=== PATIENT | male | born 1985 | race American Indian/Alaskan Native ===

== ENCOUNTER 2019-10-07 11:22 | Emergency (ER) | payer SELFPAY ==
--- NOTE | 2019-10-07 12:24 | Emergency Department Report ---
Blank Doc - Documentation Documentation: 34-year-old male that presents with generalized weakness, dark colored urine, n/v, and left sided abdominal pain. This initial assessment/diagnostic orders/clinical plan/treatment(s) is/are subject to change based on patient's health status, clinical progression and re-assessment by fellow clinical providers in the ED. Further treatment and workup at subsequent clinical providers discretion. Patient/guardians urged not to elope from the ED as their condition may be serious if not clinically assessed and managed. Initial orders include: 1- Patient sent to [facility] for further evaluation and treatment 2- labs 3- UA
[2019-10-07 12:56] LABS: Hemoglobin 13.7 gm/dl (11.8-15.2)
[2019-10-07 13:03] LABS: Hematocrit 40.9 % (35.5-45.6); Mean Corpuscular HGB Conc 33 % (32-34); Mean Corpuscular Volume 93 fl (84-94); Platelet Count 417 K/mm3 (140-440); Red Blood Count 4.41 M/mm3 (3.65-5.03); Red Cell Distribution Width 14.9 % (13.2-15.2)
[2019-10-07 13:18] LABS: Alanine Aminotransferase 495 units/L (7-56); Albumin 2.9 g/dL (3.9-5); Blood Urea Nitrogen 5 mg/dL (9-20); Calcium 8.6 mg/dL (8.4-10.2); Hemolysis Index 39
[2019-10-07 13:19] LABS: BUN/Creatinine Ratio 7
[2019-10-07 13:42] LABS: Band Neutrophils # (Manual) 0.1 K/mm3; Basophils % (Manual) 0 % (0.0-1.8); Total Cells Counted 100
[2019-10-07 13:43] LABS: Platelet Estimate Consistent w Auto; Target Cells 1+
[2019-10-07] MEDS ORDERED: ONDANSETRON 4 MG/2 ML INJ IV ONE (14:36)
[2019-10-07] MEDS ORDERED: SODIUM CHLORIDE 0.9% 1000 ML 1,000 ML IV ONE (14:36)
[2019-10-07 15:36] LABS: Bilirubin,Urine NEG (Negative); Blood,Urine NEG (Negative); Color,Urine Yellow (Yellow); Protein,Urine <15 mg/dL mg/dL (Negative)
--- NOTE | 2019-10-07 15:50 | Cat Scan Report ---
CT ABDOMEN AND PELVIS WITH IV CONTRAST INDICATION: Upper abdominal pain, nausea and vomiting. COMPARISON: None available. TECHNIQUE: All CT scans at this facility use dose modulation, automated exposure control, iterative reconstructi on or weight based dosing, when appropriate, to reduce radiation dose to as low as reasonably achieva ble. FINDINGS: Lung Bases: No significant abnormality. Skeletal System: No acute abnormality. ABDOMEN: Liver: There is mild periportal edema. Hepatic parenchyma is unremarkable. Gallbladder: No significant abnormality. Bile Ducts: No significant abnormality. Pancreas: No significant abnormality. Spleen: No significant abnormality. Adrenals: No significant abnormality. Right Kidney: There is minimal nephrolithiasis at the lower pole. No hydronephrosis. Left Kidney: No significant abnormality. Upper GI tract: No significant abnormality. Lymph Nodes: No significant adenopathy. Aorta: No significant abnormality. Additional Findings: No significant abnormality. PELVIS: Colon: No acute abnormality. Mild constipation. Urinary Bladder and Distal Ureters: No significant abnormality. Appendix: No significant abnormality. Lymph Nodes: No significant adenopathy. Additional Findings: None. IMPRESSION: 1. No acute process in the abdomen or pelvis. 2. Incidental findings, as above. Signer Name: Reuben Samuel MD Signed: 10/07/2019 3:45 PM Workstation Name: [id number]
[2019-10-07 16:02] LABS: Hepatitis B Surface Antigen Non-Reactive (Negative); Hepatitis C Virus Antibody Non-Reactive (NonReactive)
--- NOTE | 2019-10-07 16:28 | Emergency Department Report ---
ED General Adult HPI - General Chief complaint: Urogenital-Male Stated complaint: V/N/COUGH/DARK URINE Time Seen by Provider: 10/07/19 12:23 Source: patient Mode of arrival: Ambulatory Limitations: No Limitations - History of Present Illness Initial comments: Patient is a 34-year-old male presents emergency room with complaints of upper abdominal pain that began 2 weeks ago. He has associated nausea and vomiting. He states he has decreased appetite. He is able to tolerate p.o. intake if he eats crackers or jessica austyn but if he tries to eat anything else he will vomit. He states that his urine is very dark in coloration. He denies any fever, d ysuria, hematochezia, melena, hematemesis, back pain. He has a past medical history of HSV. No allergies to medications. He denies any drug use. He denies any IV drug use. He endorses tobacco use. He states he drinks alcohol approximately 2 beers a week. - Related Data Previous Rx's Medication Instructions Recorded Last Taken Type Cyclobenzaprine [Flexeril 10 MG 10 mg PO QHS PRN #10 tablet 06/06/18 Unknown Rx TAB] Ibuprofen [Motrin 600 MG tab] 600 mg PO Q8H PRN #20 tablet 06/06/18 Unknown Rx Cyclobenzaprine [Flexeril] 10 mg PO Q8H #20 tablet 06/23/18 Unknown Rx Naproxen 500 mg PO Q12H PRN #20 tablet 06/23/18 Unknown Rx predniSONE [Deltasone] 60 mg PO QDAY #15 tab 06/23/18 Unknown Rx Metoclopramide [Reglan] 10 mg PO Q8HR PRN #14 tab 10/07/19 Unknown Rx Allergies Allergy/AdvReac Type Severity Reaction Status Date / Time No Known Allergies Allergy Unverified 07/18/14 07:51 ED Review of Systems ROS: Stated complaint: V/N/COUGH/DARK URINE Other details as noted in HPI Comment: All other systems reviewed and negative ED Past Medical Hx - Past Medical History Previous Medical History?: Yes Hx GERD: Yes Additional medical history: genital herpes - Surgical History Past Surgical History?: Yes Additional Surgical History: right nipple - Social History Smoking Status: Light Tobacco Smoker Substance Use Type: None - Medications Home Medications: Home Medications Medication Instructions Recorded Confirmed Last Taken Type Cyclobenzaprine [Flexeril 10 MG 10 mg PO QHS PRN #10 tablet 06/06/18 Unknown Rx TAB] Ibuprofen [Motrin 600 MG tab] 600 mg PO Q8H PRN #20 tablet 06/06/18 Unknown Rx Cyclobenzaprine [Flexeril] 10 mg PO Q8H #20 tablet 06/23/18 Unknown Rx Naproxen 500 mg PO Q12H PRN #20 tablet 06/23/18 Unknown Rx predniSONE [Deltasone] 60 mg PO QDAY #15 tab 06/23/18 Unknown Rx Metoclopramide [Reglan] 10 mg PO Q8HR PRN #14 tab 10/07/19 Unknown Rx ED Physical Exam - General Limitations: No Limitations General appearance: alert, in no apparent distress - Head Head exam: Present: atraumatic, normocephalic - Eye Eye exam: Present: normal appearance - ENT ENT exam: Present: mucous membranes moist - Respiratory Respiratory exam: Present: normal lung sounds bilaterally. Absent: respiratory distress, wheezes, rales, rhonchi, stridor, chest wall tenderness, accessory muscle use, decreased breath sounds, prolonged expiratory - Cardiovascular Cardiovascular Exam: Present: regular rate, normal rhythm, normal heart sounds. Absent: systolic murmur, diastolic murmur, rubs, gallop - GI/Abdominal GI/Abdominal exam: Present: soft, tenderness (epigastric, RUQ), normal bowel sounds. Absent: distended, guarding, rebound, rigid - Neurological Exam Neurological exam: Present: alert, oriented X3 - Psychiatric Psychiatric exam: Present: normal affect, normal mood - Skin Skin exam: Present: warm, dry, intact ED Course Vital Signs 10/07/19 10/07/19 15:00 16:47 Pulse Rate 54 L Respiratory 18 16 Rate Blood Pressure 98/59 [Left] O2 Sat by Pulse 99 100 Oximetry ED Medical Decision Making - Lab Data Result diagrams: 10/07/19 12:29 10/07/19 12:29 Lab Results 10/07/19 10/07/19 10/07/19 Range/Units 12:29 12:29 14:47 WBC 5.2 (4.5-11.0) K/mm3 RBC 4.41 (3.65-5.03) M/mm3 Hgb 13.7 (11.8-15.2) gm/dl Hct 40.9 (35.5-45.6) % MCV 93 (84-94) fl MCH 31 (28-32) pg MCHC 33 (32-34) % RDW 14.9 (13.2-15.2) % Plt Count 417 (140-440) K/mm3 Lymph % (Auto) 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 Add 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 Diff Complete Total Counted 100 Seg Neutrophils % 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 Seg Neuts % (Manual) 51.0 (40.0-70.0) % Band Neutrophils % 1.0 % Lymphocytes % (Manual) 34.0 (13.4-35.0) % Reactive Lymphs % (Man) 0 % Monocytes % (Manual) 13.0 H (0.0-7.3) % Eosinophils % (Manual) 1.0 (0.0-4.3) % Basophils % (Manual) 0 (0.0-1.8) % Metamyelocytes % 0 % Myelocytes % 0 % Promyelocytes % 0 % Blast Cells % 0 % Nucleated RBC % Not Reportable Seg Neutrophils # Man 2.7 (1.8-7.7) K/mm3 Band Neutrophils # 0.1 K/mm3 Lymphocytes # (Manual) 1.8 (1.2-5.4) K/mm3 Abs React Lymphs (Man) 0.0 K/mm3 Monocytes # (Manual) 0.7 (0.0-0.8) K/mm3 Eosinophils # (Manual) 0.1 (0.0-0.4) K/mm3 Basophils # (Manual) 0.0 (0.0-0.1) K/mm3 Metamyelocytes # 0.0 K/mm3 Myelocytes # 0.0 K/mm3 Promyelocytes # 0.0 K/mm3 Blast Cells # 0.0 K/mm3 WBC Morphology Not Reportable Hypersegmented Neuts Not Reportable Hyposegmented Neuts Not Reportable Hypogranular Neuts Not Reportable Smudge Cells Not Reportable Toxic Granulation Not Reportable Toxic Vacuolation Not Reportable Dohle Bodies Not Reportable Pelger-Huet Anomaly Not Reportable Chantal Rods Not Reportable Platelet Estimate Consistent w auto Clumped Platelets Not Reportable Plt Clumps, EDTA Not Reportable Large Platelets Not Reportable Giant Platelets Not Reportable Platelet Satelliting Not Reportable Plt Morphology Comment Not Reportable RBC Morphology Not Reportable Dimorphic RBCs Not Reportable Polychromasia Not Reportable Hypochromasia Not Reportable Poikilocytosis Not Reportable Anisocytosis Not Reportable Microcytosis Not Reportable Macrocytosis Not Reportable Spherocytes Not Reportable Pappenheimer Bodies Not Reportable Sickle Cells Not Reportable Target Cells 1+ Tear Drop Cells Not Reportable Ovalocytes Not Reportable Helmet Cells Not Reportable Alvarez-Deadwood Bodies Not Reportable [place] Rings Not Reportable Lionel Cells Not Reportable Bite Cells Not Reportable Crenated Cell Not Reportable Elliptocytes Not Reportable Acanthocytes (Spur) Not Reportable Rouleaux Not Reportable Hemoglobin C Crystals Not Reportable Schistocytes Not Reportable Malaria parasites Not Reportable Brent Bodies Not Reportable Hem Pathologist Commnt No Sodium 136 L (137-145) mmol/L Potassium 4.4 (3.6-5.0) mmol/L Chloride 102.8 (98-107) mmol/L Carbon Dioxide 23 (22-30) mmol/L Anion Gap 15 mmol/L BUN 5 L (9-20) mg/dL Creatinine 0.7 L (0.8-1.3) mg/dL Estimated GFR > 60 ml/min BUN/Creatinine Ratio 7 % Glucose 108 H (75-100) mg/dL Calcium 8.6 (8.4-10.2) mg/dL Total Bilirubin 4.00 H (0.1-1.2) mg/dL AST 169 H (5-40) units/L ALT 495 H (7-56) units/L Alkaline Phosphatase 408 H (35-129) units/L Total Creatine Kinase 105 (55-170) units/L Total Protein 6.7 (6.3-8.2) g/dL Albumin 2.9 L (3.9-5) g/dL Albumin/Globulin Ratio 0.8 % Lipase 41 (13-60) units/L Urine Color (Yellow) Urine Turbidity (Clear) Urine pH (5.0-7.0) Ur Specific [place] (1.003-1.030) Urine Protein (Negative) mg/dL Urine Glucose (UA) (Negative) mg/dL Urine Ketones (Negative) mg/dL Urine Blood (Negative) Urine Nitrite (Negative) Urine Bilirubin (Negative) Urine Urobilinogen (<2.0) mg/dL Ur Leukocyte Esterase (Negative) Urine WBC (Auto) (0.0-6.0) /HPF Urine RBC (Auto) (0.0-6.0) /HPF Hepatitis A IgM Ab Reactive A (NonReactive) Hep Bs Antigen Non-reactive (Negative) Hep B Core IgM Ab Non-reactive (NonReactive) Hepatitis C Antibody Non-reactive (NonReactive) 10/07/19 Range/Units 15:00 WBC (4.5-11.0) K/mm3 RBC (3.65-5.03) M/mm3 Hgb (11.8-15.2) gm/dl Hct (35.5-45.6) % MCV (84-94) fl MCH (28-32) pg MCHC (32-34) % RDW (13.2-15.2) % Plt Count (140-440) K/mm3 Lymph % (Auto) Add Manual Diff Total Counted Seg Neutrophils % Seg Neuts % (Manual) (40.0-70.0) % Band Neutrophils % % Lymphocytes % (Manual) (13.4-35.0) % Reactive Lymphs % (Man) % Monocytes % (Manual) (0.0-7.3) % Eosinophils % (Manual) (0.0-4.3) % Basophils % (Manual) (0.0-1.8) % Metamyelocytes % % Myelocytes % % Promyelocytes % % Blast Cells % % Nucleated RBC % Seg Neutrophils # Man (1.8-7.7) K/mm3 Band Neutrophils # K/mm3 Lymphocytes # (Manual) (1.2-5.4) K/mm3 Abs React Lymphs (Man) K/mm3 Monocytes # (Manual) (0.0-0.8) K/mm3 Eosinophils # (Manual) (0.0-0.4) K/mm3 Basophils # (Manual) (0.0-0.1) K/mm3 Metamyelocytes # K/mm3 Myelocytes # K/mm3 Promyelocytes # K/mm3 Blast Cells # K/mm3 WBC Morphology Hypersegmented Neuts Hyposegmented Neuts Hypogranular Neuts Smudge Cells Toxic Granulation Toxic Vacuolation Dohle Bodies Pelger-Huet Anomaly Chantal Rods Platelet Estimate Clumped Platelets Plt Clumps, EDTA Large Platelets Giant Platelets Platelet Satelliting Plt Morphology Comment RBC Morphology Dimorphic RBCs Polychromasia Hypochromasia Poikilocytosis Anisocytosis Microcytosis Macrocytosis Spherocytes Pappenheimer Bodies Sickle Cells Target Cells Tear Drop Cells Ovalocytes Helmet Cells Alvarez-Deadwood Bodies [place] Rings [place] Cells Bite Cells Crenated Cell Elliptocytes Acanthocytes (Spur) Rouleaux Hemoglobin C Crystals Schistocytes Malaria parasites Brent Bodies Hem Pathologist Commnt Sodium (137-145) mmol/L Potassium (3.6-5.0) mmol/L Chloride (98-107) mmol/L Carbon Dioxide (22-30) mmol/L Anion Gap mmol/L BUN (9-20) mg/dL Creatinine (0.8-1.3) mg/dL Estimated GFR ml/min BUN/Creatinine Ratio % Glucose (75-100) mg/dL Calcium (8.4-10.2) mg/dL Total Bilirubin (0.1-1.2) mg/dL AST (5-40) units/L ALT (7-56) units/L Alkaline Phosphatase (35-129) units/L Total Creatine Kinase (55-170) units/L Total Protein (6.3-8.2) g/dL Albumin (3.9-5) g/dL Albumin/Globulin Ratio % Lipase (13-60) units/L Urine Color Yellow (Yellow) Urine Turbidity Clear (Clear) Urine pH 7.0 (5.0-7.0) Ur Specific [place] 1.002 L (1.003-1.030) Urine Protein <15 mg/dl (Negative) mg/dL Urine Glucose (UA) Neg (Negative) mg/dL Urine Ketones Neg (Negative) mg/dL Urine Blood Neg (Negative) Urine Nitrite Neg (Negative) Urine Bilirubin Neg (Negative) Urine Urobilinogen 2.0 (<2.0) mg/dL Ur Leukocyte Esterase Neg (Negative) Urine WBC (Auto) 1.0 (0.0-6.0) /HPF Urine RBC (Auto) 2.0 (0.0-6.0) /HPF Hepatitis A IgM Ab (NonReactive) Hep Bs Antigen (Negative) Hep B Core IgM Ab (NonReactive) Hepatitis C Antibody (NonReactive) Vital Signs 10/07/19 10/07/19 15:00 16:47 Pulse Rate 54 L Respiratory 18 16 Rate Blood Pressure 98/59 [Left] O2 Sat by Pulse 99 100 Oximetry - Radiology Data Radiology results: report reviewed CT ABDOMEN AND PELVIS WITH IV CONTRAST INDICATION: Upper abdominal pain, nausea and vomiting. COMPARISON: None available. TECHNIQUE: All CT scans at this facility use dose modulation, automated exposure control, iterative reconstruction or weight based dosing, when appropriate, to reduce radiation dose to as low as reasonably achievable. FINDINGS: Lung Bases: No significant abnormality. Skeletal System: No acute abnormality. ABDOMEN: Liver: There is mild periportal edema. Hepatic parenchyma is unremarkable. Gallbladder: No significant abnormality. Bile Ducts: No significant abnormality. Pancreas: No significant abnormality. Spleen: No significant abnormality. Adrenals: No significant abnormality. Right Kidney: There is minimal nephrolithiasis at the lower pole. No hydronephrosis. Left Kidney: No significant abnormality. Upper GI tract: No significant abnormality. Lymph Nodes: No significant adenopathy. Aorta: No significant abnormality. Additional Findings: No significant abnormality. PELVIS: Colon: No acute abnormality. Mild constipation. Urinary Bladder and Distal Ureters: No significant abnormality. Appendix: No significant abnormality. Lymph Nodes: No significant adenopathy. Additional Findings: None. IMPRESSION: 1. No acute process in the abdomen or pelvis. 2. Incidental findings, as above. Signer Name: Reuben Samuel MD Signed: 10/07/2019 3:45 PM Workstation Name: [id number] Transcribed By: SW Dictated By: Reuben Samuel MD Electronically Authenticated By: Reuben Samuel MD Signed Date/Time: 10/07/191544 DD/ 39 TD/TT: - Medical Decision Making Patient is a 34-year-old male presents emergency room with complaints of upper abdominal pain that began 2 weeks ago. He has associated nausea and vomiting. He states he has decreased appetite. He is able to tolerate p.o. intake if he eats crackers or jessica austyn but if he tries to eat anything else he will vomit. He states that his urine is very dark in coloration. He denies any fever, dysuria, hematochezia, melena, hematemesis, back pain. He has a past medical history of HSV. No allergies to medications. He denies any drug use. He denies any IV drug use. He endorses tobacco use. He states he drinks alcohol approximately 2 beers a week. Vitals are stable. On exam patient has epigas tric and right upper quadrant tenderness palpation, no guarding, no rebound, no rigidity, normal bowel sounds, no peritoneal signs, negative Ziegler sign. White blood cell count is normal. Labs significant for elevated LFTs. CT abdomen pelvis with IV contrast to rule out intra-abdominal pathology and shows 1. No acute process in the abdomen or pelvis. 2. Incidental findings, as above. Acute hepatitis panel ordered and patient is positive for hepatitis A IgM. Discussed case with Dr. Jennings, ER attending who states that this is self-limiting and that patient is feeling better and able to tolerate p.o. intake he can be discharged home to follow-up with GI. Patient given 1 L IV fluids and Zofran and symptoms completely improved, he has no pain currently, he has had no episodes of vomiting while in the ED, he is able to tolerate p.o. intake without difficulty. Discussed all results with patient and answered questions. Patient given prescription for reglan. Advised patient Please take medication as prescribed as needed. Increase your water intake over the next several days. Eat a bland liquid diet. Please avoid any alcohol or NSAIDs or drugs or any items that may be toxic to your liver. Follow-up with a GI doctor. follow up with a primary care doctor. Return to emergency room immediately for any new or worsening symptoms. - Differential Diagnosis Hepatitis, pancreatitis, cholecystitis, cholelithiasis, choledocholithiasis Critical care attestation.: If time is entered above; I have spent that time in minutes in the direct care of this critically ill patient, excluding procedure time. ED Disposition Clinical Impression: Elevated LFTs Abdominal pain Qualifiers: Abdominal location: upper abdomen, unspecified Qualified Code(s): R10.10 - Upper abdominal pain, unspecified Nausea & vomiting Qualifiers: Vomiting type: unspecified Vomiting Intractability: non-intractable Qualified Code(s): R11.2 - Nausea with vomiting, unspecified Hepatitis A Qualifiers: Hepatic coma status: without hepatic coma Qualified Code(s): B15.9 - Hepatitis A without hepatic coma Disposition: DC-01 TO HOME OR SELFCARE Is pt being admited?: No Does the pt Need Aspirin: No Condition: Stable Instructions: Viral Hepatitis A (ED) Additional Instructions: Please take medication as prescribed as needed. Increase your water intake over the next several days. Eat a bland liquid diet. Please avoid any alcohol or NSAIDs or drugs or any items that may be toxic to your liver. Follow-up with a GI doctor. follow up with a primary care doctor. Return to emergency room immediately for any new or worsening symptoms. Prescriptions: Metoclopramide [Reglan] 10 mg PO Q8HR PRN #14 tab PRN Reason: Nausea And Vomiting Referrals: PRIMARY CARE, [Primary Care Provider] - 2-3 Days [facility] [Provider Group] - 2-3 Days Forms: Work/School Release Form(ED) Time of Disposition: 17:33 Print Language: SAMOAN
[2019-10-07 16:48] VITALS: BP 98/59
== END 2019-10-07 17:43 | disposition home or self-care (01) ==
LOC: ED 11:22
DX: B15.9 Hepatitis A without hepatic coma (principal); R94.5 Abnormal results of liver function studies
CPT/HCPCS: 36415; 74177; 80053; 80074; 81001; 82550; 83690; 85007; 85025; 96361; 96374; 99284; J2405; J7030; Q9967

== ENCOUNTER 2020-01-02 19:03 | Emergency (ER) | payer SELFPAY ==
--- NOTE | 2020-01-02 19:47 | Event Note ---
ED Screening Note Date of service: 01/02/20 Time: 19:46 ED Screening Note: Patient complains of headaches x1 week, burn to the left hand after touching a stop, and possible fracture to the left hand after punching a window He reports his last tetanus vaccine was within the last 5 years. This initial assessment/diagnostic orders/clinical plan/treatment(s) is/are subject to change based on patients health status, clinical progression and re- assessment by fellow clinical providers in the ED. Further treatment and workup at subsequent clinical providers discretion. Patient/guardian urged not to elope from the ED as their condition may be serious if not clinically assessed and managed. Initial orders include: Labs X-ray
[2020-01-02 19:48] VITALS: BP 127/83
[2020-01-02 20:21] LABS: Basophils % (Auto) 0.9 % (0.0-1.8); Eosinophils # (Auto) 0.1 K/mm3 (0.0-0.4); Eosinophils % (Auto) 2.1 % (0.0-4.3); Hematocrit 44.4 % (35.5-45.6); Lymphocytes # (Auto) 2.2 K/mm3 (1.2-5.4); Lymphocytes % (Auto) 39.4 % (13.4-35.0); Mean Corpuscular HGB Conc 34 % (32-34); Mean Corpuscular Volume 94 fl (84-94); Monocytes # (Auto) 0.5 K/mm3 (0.0-0.8); Monocytes % (Auto) 9.1 % (0.0-7.3); Platelet Count 218 K/mm3 (140-440); Red Blood Count 4.75 M/mm3 (3.65-5.03); Red Cell Distribution Width 14.1 % (13.2-15.2)
[2020-01-02 20:32] LABS: Alanine Aminotransferase 39 units/L (7-56); Albumin 4.4 g/dL (3.9-5); BUN/Creatinine Ratio 16; Blood Urea Nitrogen 16 mg/dL (9-20); Calcium 9.5 mg/dL (8.4-10.2); Hemolysis Index 18
--- NOTE | 2020-01-02 20:41 | XRay Report ---
LEFT HAND 3 VIEWS INDICATION / CLINICAL INFORMATION: left hand pain after punching window COMPARISON: None available. FINDINGS: BONES / JOINT(S): Fifth metacarpal neck fracture with anterior angulation of the distal fragment and mild impaction. No additional bony injury. SOFT TISSUES: Soft tissue swelling overlying the fracture site. ADDITIONAL FINDINGS: None. Signer Name: Asad Krause MD Signed: 01/02/2020 8:41 PM Workstation Name: [id number]
[2020-01-02] MEDS ORDERED: IBUPROFEN 600 MG TAB PO ONE (21:56)
--- NOTE | 2020-01-02 22:20 | Emergency Department Report ---
Upper Extremity - HPI Chief Complaint: Extremity Injury, Lower Stated Complaint: HAND INJURY AND KNOT ON THE BACK OF HEAD Time Seen by Provider: 01/02/20 19:45 Upper Extremity: Left Hand Occurred When: 1 Day Mechanism: Hit with Object Severity: moderate Symptoms: Yes Pain with Movement, Yes Swelling, Yes Bruising/Ecchymosis Other History: The patient was evaluated in the emergency department for symptoms described in the history of present illness. He/she was evaluated in the context of the global COVID-19 pandemic, which necessitated consideration that the patient might be at risk for infection with the virus that causes COVID-19. Institutional protocols and algorithms that pertain to the evaluation of patients at risk for COVID-19 are in a state of rapid change based on information released by regulatory bodies including the CDC and federal and state organizations. These policies and algorithms were followed during the patient's care in the emergency department. Please note that these policies, procedures and recommendations changed on a rapid basis. 34-year-old - Citizen Of [place] male presents to the emergency room for left hand pain after punching a window yesterday. Also comes in complaining of a burn to the left hand x2 days on a hot spoon. Patient states he has a lump to the back of his head he thinks is been there a week. Patient has not taken any pain for his symptoms. ED Review of Systems ROS: Stated complaint: HAND INJURY AND KNOT ON THE BACK OF HEAD Other details as noted in HPI Comment: All other systems reviewed and negative ED Past Medical Hx - Past Medical History Hx GERD: Yes Additional medical history: genital herpes - Surgical History Additional Surgical History: right nipple - Social History Smoking Status: Current Every Day Smoker Substance Use Type: Alcohol - Medications Home Medications: Home Medications Medication Instructions Recorded Confirmed Last Taken Type Cyclobenzaprine [Flexeril 10 MG 10 mg PO QHS PRN #10 tablet 06/06/18 Unknown Rx TAB] Cyclobenzaprine [Flexeril] 10 mg PO Q8H #20 tablet 06/23/18 Unknown Rx Naproxen 500 mg PO Q12H PRN #20 tablet 06/23/18 Unknown Rx predniSONE [Deltasone] 60 mg PO QDAY #15 tab 06/23/18 Unknown Rx Metoclopramide [Reglan] 10 mg PO Q8HR PRN #14 tab 10/07/19 Unknown Rx Ibuprofen [Motrin 600 MG tab] 600 mg PO Q8H PRN #20 tablet 01/02/20 Unknown Rx cephALEXin [Keflex] 500 mg PO Q12HR 7 Days #14 cap 01/02/20 Unknown Rx traMADoL [Ultram 50 MG tab] 50 mg PO Q6HR PRN #12 tablet 01/02/20 Unknown Rx Upper Extremity Exam - Exam General: Vital signs noted. No distress. Alert and acting appropriately. Head and Torso: No HEENT Abnormality, No Neck Tenderness, No Chest/Lungs Abnormality, No Abdominal Tenderness, No Back Tenderness Shoulder Exam: Yes Normal Range of Motion in Shoulder Arm Exam: Yes Arm/Humerus Tenderness Elbow: Yes Normal Range of Motion in Elbow Hand: Yes Hand Tenderness, Yes Hand Deformity, No Digit(s) Deformity CMS Exam: Yes Normal Distal Pulses, Yes Normal Capillary Refill, Yes Normal Distal Sensation, No Broken Skin (2 blisters on the palm of left hand is intact.) ED Course Vital Signs 01/02/20 19:45 Temperature 97.9 F Pulse Rate 101 H Respiratory 18 Rate Blood Pressure 127/83 O2 Sat by Pulse 98 Oximetry ED Medical Decision Making - Lab Data Result diagrams: 01/02/20 20:01 01/02/20 20:01 - Radiology Data Radiology results: report reviewed Referring Physician:MARIA D HERNANDEZPatient Name:JELENA VELEZPatient ID:[id number] of :[id number]:MaleAccession:[id number] Date:[id number] Status:Finalized Findings [address] [address] XRay Report Signed Patient: JELENA VELEZ MR#: [id number] : 1985 Acct:[id number] Age/Sex: 34 / M ADM Date: 01/02/20 Loc: ED Attending Dr: Ordering Physician: MARIA D HERNANDEZ Date of Service: 01/02/20 Procedure(s): XR hand 3+V LT Accession Number(s): [id number] cc: MARIA D HERNANDEZ Fluoro Time In Minutes: LEFT HAND 3 VIEWS INDICATION / CLINICAL INFORMATION: left hand pain after punching window COMPARISON: None available. FINDINGS: BONES / JOINT(S): Fifth metacarpal neck fracture with anterior angulation of the distal fragment and mild impaction. No additional bony injury. SOFT TISSUES: Soft tissue swelling overlying the fracture site. ADDITIONAL FINDINGS: None. Signer Name: Asad Krause MD Signed: 01/02/2020 8:41 PM Workstation Name: [id number] Transcribed By: ES Dictated By: Asad Krause MD Electronically Authenticated By: Asad Krause MD Signed Date/Time: 01/02/202040 - Medical Decision Making 34-year-old -Citizen Of [place] male presents to the emergency room for left hand pain after punching a window yesterday. Also comes in complaining of a burn to the left hand x2 days on a hot spoon. Patient states he has a lump to the back of his head he thinks is been there a week. Patient has not taken any pain for his symptoms X-ray shows a left fifth meta carpal fracture with angulation. Lesser on his vizcaino nd can follow-up but [place] [facility]. I recommend keep intact skin for protection of infection. Patient will be placed on Keflex. Patient is to follow-up with a primary care provider for the lump on his head is not concerned. Critical care attestation.: If time is entered above; I have spent that time in minutes in the direct care of this critically ill patient, excluding procedure time. ED Disposition Clinical Impression: Displaced fracture of neck of left fifth metacarpal bone, Blister of hand without infection Disposition: DC-01 TO HOME OR SELFCARE Is pt being admited?: No Does the pt Need Aspirin: No Condition: Stable Instructions: Metacarpal Fracture, Tigu-[id number]-Ywru Additional Instructions: Complete antibiotics as prescribed. Take pain medication as needed. Follow-up with the burn specialist at [place]. Follow-up with an orthopedic provider I have listed their information below for your convenience. Also follow-up with a primary care provider. Prescriptions: cephALEXin [Keflex] 500 mg PO Q12HR 7 Days #14 cap Ibuprofen [Motrin 600 MG tab] 600 mg PO Q8H PRN #20 tablet PRN Reason: Pain traMADoL [Ultram 50 MG tab] 50 mg PO Q6HR PRN #12 tablet PRN Reason: Pain Referrals: ERNESTINE CHRISTY MD [Primary Care Provider] - 3-5 Days HANNAH ORELLANA MD [Staff Physician] - 3-5 Days [facility] [Provider Group] - 3-5 Days [facility] [Outside] - 3-5 Days Forms: Work/School Release Form(ED)
== END 2020-01-02 22:40 | disposition home or self-care (01) ==
LOC: ED 19:03
DX: S62.337A Displaced fracture of neck of fifth metacarpal bone, left hand, initial encounter for closed fracture (principal); S60.529A Blister (nonthermal) of unspecified hand, initial encounter; K21.9 Gastro-esophageal reflux disease without esophagitis; F17.200 Nicotine dependence, unspecified, uncomplicated; Z79.899 Other long term (current) drug therapy; Z98.890 Other specified postprocedural states; X58.XXXA Exposure to other specified factors, initial encounter; Y93.89 Activity, other specified; Y92.89 Other specified places as the place of occurrence of the external cause; Y99.8 Other external cause status
CPT/HCPCS: 36415; 80053; 85025

== ENCOUNTER 2020-01-27 06:05 | Emergency (ER) | payer SELFPAY ==
[2020-01-27] MEDS ORDERED: ONDANSETRON 4 MG ODT TAB PO ONE (11:03)
[2020-01-27 11:40] LABS: Basophils # (Auto) 0.1 K/mm3 (0.0-0.1); Basophils % (Auto) 0.9 % (0.0-1.8); Eosinophils % (Auto) 0.3 % (0.0-4.3); Hematocrit 44.3 % (35.5-45.6); Hemoglobin 14.9 gm/dl (11.8-15.2); Lymphocytes # (Auto) 0.8 K/mm3 (1.2-5.4); Lymphocytes % (Auto) 13.4 % (13.4-35.0); Mean Corpuscular HGB Conc 34 % (32-34); Mean Corpuscular Volume 93 fl (84-94); Monocytes # (Auto) 0.7 K/mm3 (0.0-0.8); Monocytes % (Auto) 10.8 % (0.0-7.3); Platelet Count 196 K/mm3 (140-440); Red Blood Count 4.75 M/mm3 (3.65-5.03); Red Cell Distribution Width 13.7 % (13.2-15.2)
[2020-01-27 11:56] LABS: Alanine Aminotransferase 24 units/L (7-56); Albumin 4.4 g/dL (3.9-5); BUN/Creatinine Ratio 8; Bilirubin,Direct 0.2 mg/dL (0-0.2); Blood Urea Nitrogen 8 mg/dL (9-20); Calcium 9.2 mg/dL (8.4-10.2); Hemolysis Index 19
--- NOTE | 2020-01-27 13:17 | Emergency Department Report ---
ED General Adult HPI - General Chief complaint: Urogenital-Male Stated complaint: RECTAL BLEEDING/HERPES Source: patient Mode of arrival: Ambulatory Limitations: No Limitations - History of Present Illness Initial comments: Is a 34-year-old man who essentially is here to obtain medication as prophylaxis for herpes outbreaks. He states he was here sometime ago for the same. Inmarilee krause he stated that he was having an outbreak now on his penis. However on exam there was nothing found and he admitted that he had no current problem. Patient's initial blood pressure was elevated. He is not taking any medication for hypertension. He does not take any other medication. He has no other specific complaint. Apparently the patient did have a hepatitis A infection. He never had any follow-up for that. He does have 2 bilirubins which showed a significant downward trend prior. He states that he has never had HIV testing. -: month(s) Location: genitals Improves with: none Worsens with: none Associated Symptoms: denies other symptoms - Related Data Previous Rx's Medication Instructions Recorded Last Taken Type Cyclobenzaprine [Flexeril 10 MG 10 mg PO QHS PRN #10 tablet 06/06/18 Unknown Rx TAB] Cyclobenzaprine [Flexeril] 10 mg PO Q8H #20 tablet 06/23/18 Unknown Rx Naproxen 500 mg PO Q12H PRN #20 tablet 06/23/18 Unknown Rx predniSONE [Deltasone] 60 mg PO QDAY #15 tab 06/23/18 Unknown Rx Metoclopramide [Reglan] 10 mg PO Q8HR PRN #14 tab 10/07/19 Unknown Rx Ibuprofen [Motrin 600 MG tab] 600 mg PO Q8H PRN #20 tablet 01/02/20 Unknown Rx cephALEXin [Keflex] 500 mg PO Q12HR 7 Days #14 cap 01/02/20 Unknown Rx traMADoL [Ultram 50 MG tab] 50 mg PO Q6HR PRN #12 tablet 01/02/20 Unknown Rx amLODIPine 5 mg PO DAILY #30 tab 01/27/20 Unknown Rx valACYclovir [Valtrex] 500 mg PO QID #30 tab 01/27/20 Unknown Rx Allergies Allergy/AdvReac Type Severity Reaction Status Date / Time No Known Allergies Allergy Unverified 07/18/14 07:51 ED Review of Systems ROS: Stated complaint: RECTAL BLEEDING/HERPES Other details as noted in HPI Constitutional: denies: chills, fever Eyes: denies: eye pain, vision change ENT: denies: ear pain, throat pain Respiratory: denies: cough, shortness of breath Cardiovascular: denies: chest pain, palpitations Endocrine: no symptoms reported Gastrointestinal: denies: abdominal pain, nausea, diarrhea Genitourinary: as per HPI. denies: urgency, dysuria Musculoskeletal: denies: back pain, joint swelling, arthralgia Skin: denies: rash, lesions Neurological: denies: headache, weakness, paresthesias Psychiatric: denies: anxiety, depression Hematological/Lymphatic: denies: easy bleeding, easy bruising ED Past Medical Hx - Past Medical History Previous Medical History?: Yes Hx GERD: Yes Additional medical history: genital herpes, Hepatitis A - Surgical History Past Surgical History?: Yes Additional Surgical History: right nipple - Social History Smoking Status: Current Every Day Smoker Substance Use Type: Alcohol - Medications Home Medications: Home Medications Medication Instructions Recorded Confirmed Last Taken Type Cyclobenzaprine [Flexeril 10 MG 10 mg PO QHS PRN #10 tablet 06/06/18 Unknown Rx TAB] Cyclobenzaprine [Flexeril] 10 mg PO Q8H #20 tablet 06/23/18 Unknown Rx Naproxen 500 mg PO Q12H PRN #20 tablet 06/23/18 Unknown Rx predniSONE [Deltasone] 60 mg PO QDAY #15 tab 06/23/18 Unknown Rx Metoclopramide [Reglan] 10 mg PO Q8HR PRN #14 tab 10/07/19 Unknown Rx Ibuprofen [Motrin 600 MG tab] 600 mg PO Q8H PRN #20 tablet 01/02/20 Unknown Rx cephALEXin [Keflex] 500 mg PO Q12HR 7 Days #14 cap 01/02/20 Unknown Rx traMADoL [Ultram 50 MG tab] 50 mg PO Q6HR PRN #12 tablet 01/02/20 Unknown Rx amLODIPine 5 mg PO DAILY #30 tab 01/27/20 Unknown Rx valACYclovir [Valtrex] 500 mg PO QID #30 tab 01/27/20 Unknown Rx ED Physical Exam - General Limitations: No Limitations General appearance: alert, in no apparent distress - Head Head exam: Present: atraumatic, normocephalic - Eye Eye exam: Present: normal appearance. Absent: scleral icterus - ENT ENT exam: Present: mucous membranes moist - Neck Neck exam: Present: normal inspection - Respiratory Respiratory exam: Present: normal lung sounds bilaterally. Absent: respiratory distress - Cardiovascular Cardiovascular Exam: Present: regular rate, normal rhythm. Absent: systolic murmur, diastolic murmur, rubs, gallop - GI/Abdominal GI/Abdominal exam: Present: soft, normal bowel sounds. Absent: distended, tenderness, guarding, rebound - Rectal Rectal exam: Present: deferred - exam: Present: normal inspection - Extremities Exam Extremities exam: Present: normal inspection - Back Exam Back exam: Present: normal inspection - Neurological Exam Neurological exam: Present: alert, oriented X3, CN II-XII intact. Absent: motor sensory deficit - Psychiatric Psychiatric exam: Present: normal affect, normal mood - Skin Skin exam: Present: warm, dry, intact, normal color. Absent: rash ED Course Vital Signs 01/27/20 07:27 Temperature 98.7 F Pulse Rate 109 H Respiratory 20 Rate Blood Pressure 164/93 O2 Sat by Pulse 95 Oximetry ED Medical Decision Making - Lab Data Result diagrams: 01/27/20 11:11 01/27/20 11:11 Critical care attestation.: If time is entered above; I have spent that time in minutes in the direct care of this critically ill patient, excluding procedure time. ED Disposition Clinical Impression: Essential hypertension, History of herpes genitalis Disposition: DC-01 TO HOME OR SELFCARE Is pt being admited?: No Does the pt Need Aspirin: No Condition: Stable Instructions: Hypertension (ED), Hypertension, Adult, Kmtl-[id number], Genital Herpes Additional Instructions: Rx as needed for herpes outbreaks. Follow-up at the health department or [facility]. You were found to have hypertension. Rx as directed. Prescriptions: amLODIPine 5 mg PO DAILY #30 tab valACYclovir [Valtrex] 500 mg PO QID #30 tab Referrals: PRIMARY CARE, [Primary Care Provider] - 3-5 Days [facility] [Outside] - 3-5 Days [facility] [Provider Group] - 3-5 Days Time of Disposition: 13:17
[2020-01-27 13:20] VITALS: BP 156/88
== END 2020-01-27 13:29 | disposition home or self-care (01) ==
LOC: ED 06:05
DX: I10 Essential (primary) hypertension (principal); K21.9 Gastro-esophageal reflux disease without esophagitis; F17.200 Nicotine dependence, unspecified, uncomplicated; Z79.899 Other long term (current) drug therapy; Z98.890 Other specified postprocedural states; Z86.19 Personal history of other infectious and parasitic diseases
CPT/HCPCS: 36415; 80048; 80076; 83735; 85025; Q0162

== ENCOUNTER 2020-01-29 11:57 | Emergency (ER) | payer SELFPAY ==
[2020-01-29 13:28] VITALS: BP 112/74
== END 2020-01-29 18:00 | disposition left against medical advice (07) ==
LOC: ED 11:57
DX: R52 Pain, unspecified (principal); Z53.21 Procedure and treatment not carried out due to patient leaving prior to being seen by health care provider

== ENCOUNTER 2021-03-25 02:02 | Emergency (ER) | payer SELFPAY ==
[2021-03-25] MEDS ORDERED: diphenhydrAMINE 25 MG CAP PO ONE (02:57)
[2021-03-25] MEDS ORDERED: FAMOTIDINE 20 MG TAB PO ONE (07:32)
[2021-03-25] MEDS ORDERED: predniSONE 20 MG TAB PO ONE (07:32)
[2021-03-25] MEDS ORDERED: FAMOTIDINE 20 MG/2 ML INJ IV ONE (07:34)
[2021-03-25] MEDS ORDERED: dexAMETHasone 20 MG/5 ML VIAL IV ONE (07:34)
--- NOTE | 2021-03-25 07:35 | Emergency Department Report ---
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 PURUITIC. NO SECONDARY INFECTION NOTED. ED Past Medical Hx - Past Medical History Previous Medical History?: Yes Hx GERD: Yes Additional medical history: genital herpes, Hepatitis A - Surgical History Past Surgical History?: Yes Additional Surgical History: right nipple - Family History Family history: no significant - Social History Smoking Status: Current Every Day Smoker Substance Use Type: Alcohol - Medications Home Medications: Home Medications Medication Instructions Recorded Confirmed Last Taken Type amLODIPine 5 mg PO DAILY #30 tab 01/27/20 Unknown Rx valACYclovir [Valtrex] 500 mg PO QID #30 tab 01/27/20 Unknown Rx Cetirizine HCl [ZyrTEC] 10 mg PO DAILY #30 capsule 03/25/21 Unknown Rx hydrOXYzine PAMOATE [Vistaril] 25 mg PO Q6HR PRN #20 capsule 03/25/21 Unknown Rx predniSONE [Deltasone] 20 mg PO DAILY #5 tablet 03/25/21 Unknown Rx ED Review of Systems ROS: Stated complaint: ALLERGIC REACTION Other details as noted in HPI Comment: All other systems reviewed and negative Constitutional: denies: chills, fever Eyes: denies: eye pain, eye discharge, vision change ENT: denies: ear pain, throat pain Respiratory: denies: cough, shortness of breath, wheezing Cardiovascular: denies: chest pain, palpitations Endocrine: no symptoms reported Gastrointestinal: denies: abdominal pain, nausea, diarrhea Genitourinary: denies: urgency, dysuria Musculoskeletal: denies: back pain, joint swelling, arthralgia Skin: denies: rash, lesions Neurological: denies: headache, weakness, paresthesias Psychiatric: denies: anxiety, depression Hematological/Lymphatic: denies: easy bleeding, easy bruising Physical Exam - Physical Exam Vital Signs: Vital Signs 03/25/21 02:05 Temperature 98.6 F Pulse Rate 95 H Respiratory 18 Rate Blood Pressure 132/89 [Right] O2 Sat by Pulse 96 Oximetry General: ALERT ORIENTED S1S2 LUNGS CTA ABD SNT NO CVA TENDERNESS GENERALIZED URTICARIAL RASH ? TRIGGER ED Course Vital Signs 03/25/21 02:05 Temperature 98.6 F Pulse Rate 95 H Respiratory 18 Rate Blood Pressure 132/89 [Right] O2 Sat by Pulse 96 Oximetry ED Medical Decision Making - Medical Decision Making Vital Signs 03/25/21 02:05 Temperature 98.6 F Pulse Rate 95 H Respiratory 18 Rate Blood Pressure 132/89 [Right] O2 Sat by Pulse 96 Oximetry GENERALIZED RASH. STARTED ON TRUNK NO KNOWN TRIGGER NO KNOWN IRRITANT NO ONE IN HOME WITH THE SAME PURITIC IN [place] PT DENIES SIMILAR HX DENIES DRUGS- HE IS VERY AGITATED FROM THE ITCHING PT HAS HX HEP A HERE 02/03 AND LFT NORMAL NO CRYSTALS ON SKIN NO JAUNDICE NO ORAL OR HAND LESIONS DENIES FEVER CHILLS DENIES ABD OR BACK PAIN DENIES N/V/D AMBULATORY WITH NO SOB OR CP MEDICATED WITH BENADRYL OVERNIGHT WITH SOME RELIEF. I THEN MEDICATED HIM WITH PEPCID AND STEROID- AND THAT SEEM TO MAKE A LARGE DIFFERENCE. REDNESS DECREASED. ITCHING . AND PT THEN ASKING TO BE D/C DC HOME WITH DC PLAN OF CARE INCLUDING DIET, ACTIVITY, MEDS, FOLLOW UP. I'VE TOLD HIM HE MAY NEED OTHER TESTS TO DEFINITIVELY DEFINE WHAT IS CAUSING RASH. HE VERBALIZES UNDERSTANDING - Differential Diagnosis HIVES/RASH/INSECT RELATED Critical care attestation.: If time is entered above; I have spent that time in minutes in the direct care of this critically ill patient, excluding procedure time. ED Disposition Clinical Impression: Rash Disposition: 01 HOME / SELF CARE / HOMELESS Is pt being admited?: No Does the pt Need Aspirin: No Condition: Stable Instructions: Hives, Rash, Adult Additional Instructions: MEDS ORDERED TODAY FOLLOW UP WITH PCP IF IT DOES NOT GET BETTER YOU MAY NEED TESTS TO DETERMINE WHAT CAUSED THIS ER'S DO NOT DO SKIN TESTING Prescriptions: predniSONE [Deltasone] 20 mg PO DAILY #5 tablet hydrOXYzine PAMOATE [Vistaril] 25 mg PO Q6HR PRN #20 capsule PRN Reason: Itching Cetirizine HCl [ZyrTEC] 10 mg PO DAILY #30 capsule Referrals: PRIMARY CARE, [Primary Care Provider] - 3-5 Days SUSANNE PEREZ MD [Staff Physician] - 3-5 Days Time of Disposition: 09:26
[2021-03-25] MEDS ORDERED: IBUPROFEN 800 MG TAB PO ONE (09:25)
[2021-03-25 09:50] VITALS: BP 117/84
== END 2021-03-25 09:43 | disposition home or self-care (01) ==
LOC: ED 02:02
DX: R21 Rash and other nonspecific skin eruption (principal)
CPT/HCPCS: 99283; J1100; J3490

== ENCOUNTER 2021-09-30 17:27 | Emergency (ER) | payer SELFPAY ==
[2021-09-30 20:17] VITALS: BP 135/95
--- NOTE | 2021-09-30 23:21 | Emergency Department Report ---
ED General Adult HPI - General Chief complaint: Headache Stated complaint: I just want to make sure I am okay Time Seen by Provider: 09/30/21 22:38 Source: patient, RN notes reviewed, old records reviewed Mode of arrival: Ambulatory Limitations: No Limitations - History of Present Illness Initial comments: The patient was evaluated in the emergency department for symptoms described in the history of present illness. He/she was evaluated in the context of the global COVID-19 pandemic, which necessitated consideration that the patient might be at risk for infection with the virus that causes COVID-19. Institutional protocols and algorithms that pertain to the evaluation of patients at risk for COVID-19 are in a state of rapid change based on inf ormation released by regulatory bodies including the CDC and federal and state organizations. These policies and algorithms were followed during the patient's care in the emergency department. Please note that these policies, procedures and recommendations changed on a rapid basis. The patient is a 36-year-old gentleman, who presents to the department today with a complaint of request for reassurance. He reports that a family member recently a few weeks ago secondary to fibroids. This upset the patient a great deal. A few weeks ago, he felt like he had intermittent forehead swelling and pulsing on the right side. Then, he felt like he had this on the left side. It is now resolved. At the moment, the patient denies all physical complaints. The patient states he does not need pain medication. The patient states that he feels like he is at his baseline. He indicates that he would like to be checked out to make sure that everything is okay -: week(s) Location: head Consistency: now resolved Improves with: none Worsens with: none Associated Symptoms: denies other symptoms - Related Data Previous Rx's Medication Instructions Recorded Last Taken Type amLODIPine 5 mg PO DAILY #30 tab 01/27/20 Unknown Rx valACYclovir [Valtrex] 500 mg PO QID #30 tab 01/27/20 Unknown Rx Cetirizine HCl [ZyrTEC] 10 mg PO DAILY #30 capsule 03/25/21 Unknown Rx hydrOXYzine PAMOATE [Vistaril] 25 mg PO Q6HR PRN #20 capsule 03/25/21 Unknown Rx predniSONE [Deltasone] 20 mg PO DAILY #5 tablet 03/25/21 Unknown Rx Allergies Allergy/AdvReac Type Severity Reaction Status Date / Time No Known Allergies Allergy Unverified 07/18/14 07:51 ED Review of Systems ROS: Stated complaint: HEAD Other details as noted in HPI Comment: All other systems reviewed and negative Neurological: headache ED Past Medical Hx - Past Medical History Hx GERD: Yes Additional medical history: genital herpes, Hepatitis A - Surgical History Additional Surgical History: right nipple - Social History Smoking Status: Current Every Day Smoker Substance Use Type: Alcohol - Medications Home Medications: Home Medications Medication Instructions Recorded Confirmed Last Taken Type amLODIPine 5 mg PO DAILY #30 tab 01/27/20 Unknown Rx valACYclovir [Valtrex] 500 mg PO QID #30 tab 01/27/20 Unknown Rx Cetirizine HCl [ZyrTEC] 10 mg PO DAILY #30 capsule 03/25/21 Unknown Rx hydrOXYzine PAMOATE [Vistaril] 25 mg PO Q6HR PRN #20 capsule 03/25/21 Unknown Rx predniSONE [Deltasone] 20 mg PO DAILY #5 tablet 03/25/21 Unknown Rx ED Physical Exam - General Limitations: No Limitations General appearance: alert, in no apparent distress - Head Head exam: Present: atraumatic, normocephalic - Eye Eye exam: Present: normal appearance, EOMI. Absent: nystagmus - ENT ENT exam: Present: normal exam, normal orophraynx, mucous membranes moist, normal external ear exam - Neck Neck exam: Present: normal inspection, full ROM. Absent: tenderness, meningismus - Respiratory Respiratory exam: Absent: respiratory distress, stridor - Cardiovascular Cardiovascular Exam: Absent: JVD - GI/Abdominal GI/Abdominal exam: Present: soft. Absent: distended, tenderness, guarding, rebound, rigid, pulsatile mass - Rectal Rectal exam: Present: deferred - Extremities Exam Extremities exam: Present: normal inspection, full ROM, normal capillary refill, other (2+ pulses noted in the bilateral upper and lower extremities. There is no palpable cord. negative Homans sign. Muscular compartments are soft. The pelvis is stable.). Absent: pedal edema, calf tenderness - Back Exam Back exam: Present: normal inspection. Absent: tenderness, CVA tenderness (R), CVA tenderness (L), paraspinal tenderness, vertebral tenderness - Neurological Exam Neurological exam: Present: alert, oriented X3, normal gait, other (No facial droop. Tongue midline. Extraocular movements intact bilaterally. Facial sensation intact to light touch in V1, V2, V3 distribution bilaterally. 5 and a 5 strength in 4 extremities. Sensation intact to light touch in 4 extremities.). Absent: motor sensory deficit - Psychiatric Psychiatric exam: Present: normal affect, normal mood - Skin Skin exam: Present: warm, dry, intact, normal color. Absent: rash ED Course Vital Signs 09/30/21 20:17 Temperature 97.9 F Pulse Rate 78 Respiratory 18 Rate Blood Pressure 135/95 O2 Sat by Pulse 99 Oximetry ED Medical Decision Making - Lab Data Vital Signs 09/30/21 20:17 Temperature 97.9 F Pulse Rate 78 Respiratory 18 Rate Blood Pressure 135/95 O2 Sat by Pulse 99 Oximetry - Medical Decision Making Differential diagnosis, include but not limited to: Encounter for medical screening examination, migraine headache, tension headache, cluster headache, conversion disorder Assessment and plan: 36-year-old gentleman, who is currently pleasant, calm and cooperative, in no acute distress, with a GCS of 15. He currently has no acute complaints. His physical examination is benign, noncontributory, and unremarkable. He declines pain medication at this time. He states that he feels reassured that he does not appear to have an emergent medical condition present at this time. Patient observed in this department for hours without clinical decompensation. He is suitable for discharge with expectant management. Return precautions are reviewed. All questions answered. Specifically denies headache at this time. Critical care attestation.: If time is entered above; I have spent that time in minutes in the direct care of this critically ill patient, excluding procedure time. ED Disposition Clinical Impression: History of headache, Encounter for medical screening examination Disposition: 01 HOME / SELF CARE / HOMELESS Is pt being admited?: No Does the pt Need Aspirin: No Condition: Good Additional Instructions: Patient may alternate ice packs and heat packs as needed for physical pain. May take [id number] Tylenol and/or ibuprofen as needed for physical pain. Participate in physical activities as tolerated. Follow-up with your outpatient primary care doctor within the next month. Please return to the emergency room right away with new pain, worsened pain, migration of pain, projectile vomiting, change in mental status, confusion, inability tolerate liquid feeds, new, worsened or different symptoms not present on the initial emergency room evaluation Referrals: SUSANNE PEREZ MD [Primary Care Provider] - as needed Forms: Work/School Release Form(ED)
== END 2021-10-01 00:13 | disposition home or self-care (01) ==
LOC: ED 17:27
DX: Z00.00 Encounter for general adult medical examination without abnormal findings (principal); R51.9 Headache, unspecified; K21.9 Gastro-esophageal reflux disease without esophagitis; F17.200 Nicotine dependence, unspecified, uncomplicated; Z72.89 Other problems related to lifestyle; Z79.899 Other long term (current) drug therapy
CPT/HCPCS: 99282